=== PATIENT | female | born 1940 | race Caucasian/White ===

== ENCOUNTER 2017-04-09 18:35 | Emergency (ER) | payer MEDICARE, MEDICAID ==
[2017-04-09 18:35] VITALS: BMI 36.7
[2017-04-09 18:47] VITALS: BP 142/99; PULSE 94; RESP 20; TEMP 98.6; O2SAT 97
--- NOTE | 2017-04-09 19:33 | C.PDOC ---
History Of Present Illness 76 year old female presents to ED with complaints of fever, congestion, malaise , generalized body aches, cough, nausea and diarrhea for one week. Patient reports she did not take her temperature but has been taking Ibuprofen for fever. She reports cough is non-productive. She states she called her PCP Dr Trivedi 3 days ago who sent Zithromax to the pharmacy. She has been taking it for 2 days, but feels the same. Denies any chest pain, SOB, abdominal pain, back pain, urinary symptoms actively cough normal heart and lungs Time Seen by Provider: 04/09/17 19:21 Chief Complaint (Nursing): Body Fluid Exposure History Per: Patient History/Exam Limitations: no limitations Onset/Duration Of Symptoms: Days (1 week) Past Medical History Reviewed: Historical Data, Nursing Documentation, Vital Signs Vital Signs: Last Vital Signs Temp 98.6 F 04/09/17 18:47 Pulse 94 H 04/09/17 18:47 Resp 20 04/09/17 18:47 BP 142/99 H 04/09/17 18:47 Pulse Ox 97 04/09/17 19:55 - Medical History PMH: Anxiety, Asthma, Diabetes, HTN, Hypercholesterolemia - [facility] Procedures ACHILLOTENOTOMY (09/09/12) INJECT/INFUSE NEC (09/09/12) Family History: States: No Known Family Hx - Social History Hx Tobacco Use: No Hx Alcohol Use: No Hx Substance Use: No - Immunization History Hx Influenza Vaccination: Yes Hx Pneumococcal Vaccination: Yes Review Of Systems Except As Marked, All Systems Reviewed And Found Negative. Constitutional: Positive for: Fever (subjective), Malaise, Other ((+) generalized body aches) ENT: Positive for: Nose Congestion Cardiovascular: Negative for: Chest Pain Respiratory: Positive for: Cough (dry). Negative for: Shortness of Breath Gastrointestinal: Positive for: Nausea, Diarrhea. Negative for: Abdominal Pain Genitourinary: Negative for: Dysuria, Incontinence Musculoskeletal: Negative for: Back Pain Physical Exam - Physical Exam Appears: Non-toxic, No Acute Distress Skin: Warm, Dry, No Rash Head: Atraumatic, Normacephalic Eye(s): bilateral: Normal Inspection, PERRL, EOMI Ear(s): Bilateral: Normal (no erythema) Nose: Normal, No Discharge Oral Mucosa: Moist Throat: Normal, No Erythema, No Exudate Neck: Normal, Normal ROM, Supple Chest: Symmetrical, No Tenderness Cardiovascular: Rhythm Regular, No Murmur Respiratory: Normal Breath Sounds, No Rales, No Rhonchi, No Stridor, No Wheezing , Other (actively coughing) Gastrointestinal/Abdominal: Normal Exam, Soft, No Tenderness, No Guarding, No Rebound Extremity: Normal ROM, No Tenderness, No Deformity, No Swelling Neurological/Psych: Oriented x3, Normal Speech Gait: Steady ED Course And Treatment O2 Sat by Pulse Oximetry: 97 (RA) Pulse Ox Interpretation: Normal Medical Decision Making Medical Decision Making: Patient with multiple symptoms complaint and already taking antibiotic Zithromax with no significant relief. She has no fever, wheezing or in respiratory distress. Based on history, exam and widespread influenza, symptoms are likely the Flu. Patient is out of time window for Tamiflu. Patient advised on supportive treatment, can finish antibiotics but recommend rest, fluids and cough medicine. Disposition Counseled Patient/Family Regarding: Diagnosis, Need For Followup, Rx Given - Disposition Referrals: Moe Trivedi MD [Staff Provider] - Disposition: HOME/ ROUTINE Disposition Time: 19:33 Condition: STABLE Additional Instructions: You have viral infection, likely Influenza Take Tylenol or Motrin alternating every 4-6 hours for Fever 100.4F or higher. Rest and drink plenty of fluids. May use cool mist humidifier or vaporizer in room. Take Cough medicine as needed every 8 hours. Follow up with your primary medical doctor for further evaluation. Prescriptions: Promethazine/Phenyleph/Codeine [Korkdhzkjgkf-FH-Ylfudst Syrup] 5 ml PO Q8 PRN # 150 ml PRN Reason: Cough Instructions: Influenza (ED) Forms: [facility] ([place]i) - POA Present On Arrival: None - Clinical Impression Clinical Impression: Influenza - PA / MELTER CASTER / Resident Statement MD/DO has reviewed & agrees with the documentation as recorded. - Scribe Statement The provider has reviewed the documentation as recorded by the Scribe Heydi Barkley All medical record entries made by the Scribe were at my direction and personally dictated by me. I have reviewed the chart and agree that the record accurately reflects my personal performance of the history, physical exam, medical decision making, and the department course for this patient. I have also personally directed, reviewed, and agree with the discharge instructions and disposition.
== END 2017-04-09 20:21 | disposition home or self-care (01) ==
LOC: C.ER 18:35
DX: J11.1 Influenza due to unidentified influenza virus with other respiratory manifestations (principal)

== ENCOUNTER 2017-05-22 12:29 | Emergency (ER) | payer MEDICARE, OTHER ==
[2017-05-22 12:40] VITALS: RESP 18
[2017-05-22 12:45] VITALS: BMI 31.8
[2017-05-22 13:19] LABS: SQUAMOUS EPITHIAL < 1 /hpf (0-5); URINE BILIRUBIN NEGATIVE (NEGATIVE); URINE BLOOD NEGATIVE (NEGATIVE); URINE CLARITY Clear (Clear); URINE GLUCOSE (UA) NORMAL (Normal); URINE LEUKOCYTE ESTERASE NEG Leu/uL (Negative); URINE PROTEIN NEGATIVE (NEGATIVE); URINE UROBILINOGEN NORMAL mg/dL (0.2-1.0)
[2017-05-22 13:20] LABS: URINE COLOR YELLOW (YELLOW)
[2017-05-22] MEDS ORDERED: Morphine 4 MG/ML VIAL ONE (15:42)
[2017-05-22 15:49] LABS: BASO % 0.4 % (0.0-2.0); EOS # 0.1 K/uL (0.0-0.7); EOS % 1.4 % (0.0-4.0); HEMOGLOBIN 12.7 g/dL (11.0-16.0); LYMPH # 2.9 K/uL (1.0-4.3); MEAN CORPUSCULAR HEMOGLOBIN 28.4 pg (27.0-31.0); MEAN CORPUSCULAR HGB CONC 33.1 g/dL (33.0-37.0); MEAN PLATELET VOLUME 9.2 fL (7.2-11.7); MONO # 0.4 K/uL (0.0-0.8); MONO % 4.5 % (0.0-10.0); NEUT # 5.4 K/uL (1.8-7.0); NEUT % 60.7 % (50.0-75.0); NRBC % 0.1 % (0.0-2.0); RBC 4.47 Mil/uL (3.80-5.20); RED CELL DISTRIBUTION WIDTH 15.1 % (11.5-14.5); WHITE BLOOD COUNT 8.9 K/uL (4.8-10.8)
[2017-05-22 15:51] LABS: MEAN CELL VOLUME 85.7 fL (81.0-99.0)
[2017-05-22 15:56] LABS: ALB/GLOB RATIO 1.2 (1.0-2.1); ALBUMIN 4.1 g/dL (3.5-5.0); ALT/SGPT 40 U/L (9-52); AST/SGOT 35 U/L (14-36); BLOOD UREA NITROGEN 14 mg/dL (7-17); GFR AFRICAN-AMERICAN > 60; GFR NON-AFRICAN AMERICAN > 60; LIPASE 118 U/L (23-300)
--- NOTE | 2017-05-22 16:34 | CT ---
PROCEDURE: CT Abdomen and Pelvis without intravenous contrast HISTORY: Left flank pain. COMPARISON: None. TECHNIQUE: Without contrast.. Contrast Dose: 0 Radiation dose: Total exam DLP = 952.26 mGy-cm. This CT exam was performed using one or more of the following dose reduction techniques: Automated exposure control, adjustment of the mA and/or kV according to patient size, and/or use of iterative reconstruction technique. FINDINGS: LOWER THORAX: Unremarkable. LIVER: Normal size and contour. No mass. Several punctate calcifications consistent with calcified granulomata. No biliary ductal dilatation. GALLBLADDER AND BILE DUCTS: Gallbladder not visualized. Though there are no surgical clips in the gallbladder fossa, the patient is presumed to be status post cholecystectomy. Please correlate with history. PANCREAS: Unremarkable. No gross lesion or ductal dilatation. SPLEEN: Unremarkable. ADRENALS: Unremarkable. No mass. KIDNEYS AND URETERS: Unremarkable. No hydronephrosis. No solid mass. VASCULATURE: Unremarkable. No aortic aneurysm. BOWEL: Diverticulosis of the descending and sigmoid colon. No evidence of diverticulitis. No bowel obstruction. APPENDIX: Unremarkable. Normal appendix. PERITONEUM: No ascites. Evidence of prior ventral herniorrhaphy ease. There are 2 ventral hernias containing only mesenteric fat but no herniated bowel loops. LYMPH NODES: Unremarkable. No enlarged lymph nodes. BLADDER: Poorly distended. Grossly normal. REPRODUCTIVE: Status post hysterectomy. BONES: No acute fracture. OTHER FINDINGS: None. IMPRESSION: Two ventral hernias containing only mesenteric fat. No bowel herniation. Diverticulosis of the descending and sigmoid colon. No evidence of diverticulitis. No bowel obstruction. No other significant abnormality.
[2017-05-22 16:45] VITALS: BP 121/70; PULSE 79; TEMP 98.2
[2017-05-22 16:47] VITALS: O2SAT 97
--- NOTE | 2017-05-22 16:47 | C.PDOC ---
History Of Present Illness Pt c/o left lower back pain radiating down LLE/anteriorly. Time Seen by Provider: 05/22/17 12:55 Chief Complaint (Nursing): Back Pain History Per: Patient, EMS, Family Onset/Duration Of Symptoms: Hrs (this morning), Waxing/Waning Current Symptoms Are (Timing): Still Present Quality Of Discomfort: "Pain" Severity: Severe Exacerbating Factor(s): Movement Additional History Per: Prior Records Past Medical History Reviewed: Historical Data, Nursing Documentation, Vital Signs Vital Signs: Last Vital Signs Temp 98.0 F 05/22/17 12:39 Pulse 78 05/22/17 12:39 Resp 18 05/22/17 12:39 BP 161/82 H 05/22/17 12:39 Pulse Ox 97 05/22/17 12:39 - Medical History PMH: Anxiety, Asthma, Diabetes, HTN, Hypercholesterolemia Surgical History: Cholecystectomy, Hernia Repair, Other Surgeries: Hysterectomy - [facility] Procedures ACHILLOTENOTOMY (09/09/12) INJECT/INFUSE NEC (09/09/12) Family History: States: Unknown Family Hx - Social History Hx Tobacco Use: No Hx Alcohol Use: No Hx Substance Use: No - Immunization History Hx Tetanus Toxoid Vaccination: No Hx Influenza Vaccination: Yes Hx Pneumococcal Vaccination: No Review Of Systems Except As Marked, All Systems Reviewed And Found Negative. Constitutional: Negative for: Fever Cardiovascular: Negative for: Chest Pain Respiratory: Negative for: Shortness of Breath Gastrointestinal: Positive for: Abdominal Pain. Negative for: Vomiting, Diarrhea Genitourinary: Negative for: Dysuria Musculoskeletal: Positive for: Back Pain. Negative for: Neck Pain Skin: Negative for: Rash Neurological: Negative for: Weakness, Numbness Physical Exam - Physical Exam Appears: Non-toxic, No Acute Distress Skin: Normal Color, Warm, Dry, No Rash Head: Atraumatic, Normacephalic Eye(s): bilateral: Normal Inspection, PERRL, EOMI Neck: Normal ROM, Supple Cardiovascular: Rhythm Regular Respiratory: Normal Breath Sounds, No Accessory Muscle Use Gastrointestinal/Abdominal: Soft, No Tenderness, Hernia (reducible) Back: No CVA Tenderness, Paraspinal Tenderness (left lower) Extremity: Normal ROM Neurological/Psych: Oriented x3, Normal Motor, Normal Sensation ED Course And Treatment - Laboratory Results Result Diagrams: 05/22/17 15:41 05/22/17 15:41 Lab Interpretation: No Acute Changes O2 Sat by Pulse Oximetry: 97 Pulse Ox Interpretation: Normal - Other Rad Left hip x-rays X-Ray: Interpreted by Me, Viewed By Me Interpretation: DJD. No acute fx or dislocation. LS spine x-rays X-Ray: Interpreted by Me, Viewed By Me Interpretation: DJD - CT Scan/US CT abd/pelv Other Rad Studies (CT/US): Read By Radiologist, Radiology Report Reviewed CT/US Interpretation: IMPRESSION: Two ventral hernias containing only mesenteric fat. No bowel herniation. Diverticulosis of the descending and sigmoid colon. No evidence of diverticulitis. No bowel obstruction. No other significant abnormality. Reassessment Condition: Improved Disposition Counseled Patient/Family Regarding: Studies Performed, Diagnosis, Need For Followup, Rx Given - Disposition Referrals: Moe Trivedi MD [Staff Provider] - Disposition: HOME/ ROUTINE Disposition Time: 16:58 Condition: STABLE Additional Instructions: Follow up with your doctor this week for further evaluation and treatment. Return to the ER if you develop weakness, numbness, trouble urinating, worsening of symptoms or if you have any other concerns. Prescriptions: traMADol/Acetaminophen [Ultracet 325 MG-37.5 MG] 1 tab PO Q4 PRN #30 tab PRN Reason: Pain Instructions: Sciatica (DC) Forms: [employer] (O[place]i) Print Language: YI - Clinical Impression Clinical Impression: Sciatica, left side
--- NOTE | 2017-05-22 17:45 | RAD ---
PROCEDURE: Left Hip X-ray Radiographs. HISTORY: Pain COMPARISON: None. FINDINGS: BONES: Normal. No fracture. JOINTS: Normal. SOFT TISSUES: Normal. OTHER FINDINGS: None. IMPRESSION: Normal left hip radiographs.
--- NOTE | 2017-05-22 17:49 | RAD ---
PROCEDURE: Radiographs of the Lumbar Spine. HISTORY: Left sided pain radiating down LLE COMPARISON: No prior. FINDINGS: BONES: Vertebral bodies maintained in height. Transverse processes and posterior elements appear intact. DISC SPACES: Narrowing of the L5-S1 disc space. Osteophytes seen about all of the intervertebral disc spaces of the lumbar spine. OTHER FINDINGS: None. IMPRESSION: Degenerative disc disease at L5-S1.
== END 2017-05-22 17:05 | disposition home or self-care (01) ==
LOC: C.ER 12:29
DX: M54.32 Sciatica, left side (principal)
CPT/HCPCS: 72100; 73502; 74176; 80053; 81001; 83690; 85025; 96372; 99283; J1885

== ENCOUNTER 2017-12-05 13:50 | Inpatient (IN) | payer MEDICARE, MEDICAID ==
[2017-12-05 13:50] VITALS: BMI 31.8
--- NOTE | 2017-12-05 14:11 | C.PDOC ---
History Of Present Illness 77yo female, with distant history of vertigo, comes to ER reporting sudden onset dizziness x 3 hours ago. She reports ataxic gait but denies any fall. She also denies any headache, nausea, vomiting. No additional complaints. Time Seen by Provider: 12/05/17 14:03 Chief Complaint (Nursing): Weakness/Neurological Deficit History Per: Patient History/Exam Limitations: no limitations Onset/Duration Of Symptoms: Hrs Additional History Per: Patient Past Medical History Reviewed: Historical Data, Nursing Documentation, Vital Signs Vital Signs: Last Vital Signs Temp 98.2 F 12/05/17 13:50 Pulse 80 12/05/17 13:50 Resp 18 12/05/17 13:50 BP 180/104 H 12/05/17 13:50 Pulse Ox 100 12/05/17 13:50 - Medical History PMH: Anxiety, Asthma, Diabetes, HTN, Hypercholesterolemia Surgical History: Cholecystectomy, Hernia Repair, - [facility] Procedures ACHILLOTENOTOMY (09/09/12) INJECT/INFUSE NEC (09/09/12) Family History: States: Unknown Family Hx - Social History Hx Tobacco Use: No Hx Alcohol Use: No Hx Substance Use: No - Immunization History Hx Tetanus Toxoid Vaccination: Yes Hx Influenza Vaccination: Yes Hx Pneumococcal Vaccination: No Review Of Systems Except As Marked, All Systems Reviewed And Found Negative. Constitutional: Negative for: Fever, Chills Gastrointestinal: Negative for: Vomiting Neurological: Positive for: Dizziness. Negative for: Weakness, Headache Physical Exam - Physical Exam Appears: Other (mild distress) Skin: Normal Color Head: Normacephalic Eye(s): bilateral: Normal Inspection Oral Mucosa: Moist Neck: Normal ROM, Supple Chest: Symmetrical Cardiovascular: Rhythm Regular, Murmur (hollow systolic murmur) Respiratory: Normal Breath Sounds, No Rales, No Rhonchi, No Wheezing Gastrointestinal/Abdominal: Normal Exam, Soft, No Tenderness, Other (obese abdomen) Back: Normal Inspection, No CVA Tenderness Extremity: Normal ROM, No Pedal Edema Neurological/Psych: Oriented x3 ED Course And Treatment - Laboratory Results Result Diagrams: 12/05/17 14:37 12/05/17 14:37 Lab Interpretation: Normal (trop/bnp neg, UA neg.) ECG: Interpreted By Me, Viewed By Me ECG Rhythm: Sinus Rhythm ECG Interpretation: Normal Rate From EC O2 Sat by Pulse Oximetry: 100 (RA) Pulse Ox Interpretation: Normal - Radiology CXR: Interpreted by Me CXR Interpretation: Yes: No Acute Disease Progress Note: ASA, pepcid, zofran, meclizine given Reevaluation Time: 16:29 Reassessment Condition: Improved - Physician Consult Information Outcome Of Conversation: [id number]: d/w Dr. Trivedi, PMD, ok to admit for obs. Will order MRI for AM NIHSS Stroke Scale 2 - Date/Time Evaluation Performed Date Performed: 12/05/17 Time Performed: 14:00 When Was NIHSS Performed: Baseline - How Severe is the Stroke Level of Consciousness: 0=Alert LOC to Questions: 0=Both comments correct LOC to commands: 0=Obeys both correctly Best Gaze: 0=Normal Visual: 1=Partial hemianopia Facial: 0=Normal Motor Arm - Left: 0=No drift Motor Arm - Right: 0=No drift Motor Leg - Left: 0=No drift Motor Leg - Right: 0=No drift Limb Ataxia: 0=Absent Sensory: 0=Normal Best Language: 0=No aphasia Dysarthia: 0=Normal articulation Extinction & Inattention (Neglect): 0=Normal, no object Score: 1 Severity Of Stroke: 1-4 = Minor Stroke rTPA Inclusion/Exclusion - Refusal of Treatment Patient Refused Treatment: No - Inclusion Criteria for Altepase Patient is 18 years or Older: Yes The Clinical Diagnosis of Ischemic Stroke That is Causing a Potentially Disabling Neurological Deficit: No Time of Onset is Well Established to be Less Than 270 Minute Before Treatment Would Begin: No Risk/Benefit Discussed With Patient/Family Member Present: No - Exclusion Criteria for Altepase Uncontrolled Hypertension at Time of Treatment (Systolic BP above 185 or Diastolic BP above 110 mmHg): No Known Bleeding Diathesis Including but Not Limited to: Platelets Below 100,000/mm,PTT Above 40 sec After Heparin Use, Current Use of Oral Anitcoagulant With INR Greater Than 1.7 or PT Greater Than 15 secs: No Evidence of an Intracranial Hemorrhage: No Evidence of Major Acute Infarct With Signs Greater Than 1/3 MCA Territory: No Suspicion of Subarachnoid Hemorrhage on Pretreatment Evaluation Even if CT Head Negative For Hemorrhage: No - Warning to TPA With Conditions Condition: Stroke Serevity Too Mild, Rapid Improvement, Age Greater Than 75 years Medical Decision Making Medical Decision Making: Plan: * Labs * CXR * EKG * CT Head w/o contrast * Pepcid 20mg IVP * Meclizine 50mg PO * Zofran 4mg IVP Fingerstick 171 ? small CVA (multiple small vascular dz chronic on CT, nothing acute) vs anxiety, vs vertigo (h/o same "yrs" ago)\\ CT Head FINDINGS: HEMORRHAGE: No intracranial hemorrhage. BRAIN: Mild diffuse and confluent chronic periventricular white matter ischemic changes as well as patchy deep and subcortical white matter are present. 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 Note that the possibility of a small hyperacute infarct cannot be excluded on this exam. Consider follow-up MRI of the brain if further evaluation is required No obvious parenchymal nor extra-axial masses or collections. Mild age-appropriate volume loss. VENTRICLES: No obstructive hydrocephalus. CALVARIUM: Hyperostosis frontalis interna. PARANASAL SINUSES: Unremarkable as visualized. No significant inflammatory changes. MASTOID AIR CELLS: Unremarkable as visualized. No inflammatory changes. OTHER FINDINGS: None. IMPRESSION: No acute intracranial hemorrhage. Mild diffuse and confluent chronic periventricular white matter ischemic changes as well as patchy deep and subcortical white matter are present. 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 Note that the possibility of a small hyperacute infarct cannot be excluded on this exam. Consider follow-up MRI of the brain if further evaluation is required Disposition Doctor Will See Patient In The: Hospital Counseled Patient/Family Regarding: Studies Performed, Diagnosis - Disposition Disposition Time: 16:30 Forms: [facility] ([place]an) - Clinical Impression Clinical Impression: Anxiety, Dizziness - Scribe Statement The provider has reviewed the documentation as recorded by the Bela Dockery Provider Attestation: All medical record entries made by the Bela were at my direction and personally dictated by me. I have reviewed the chart and agree that the record accurately reflects my personal performance of the history, physical exam, medical decision making, and the department course for this patient. I have also personally directed, reviewed, and agree with the discharge instructions and disposition.
[2017-12-05 14:43] LABS: BASO # 0.1 K/uL (0.0-0.2); BASO % 1.1 % (0.0-2.0); EOS # 0.2 K/uL (0.0-0.7); HEMOGLOBIN 12.5 g/dL (11.0-16.0); LYMPH # 2.9 K/uL (1.0-4.3); LYMPH % 34.6 % (20.0-40.0); MEAN CELL VOLUME 84.8 fL (81.0-99.0); MEAN CORPUSCULAR HEMOGLOBIN 28.7 pg (27.0-31.0); MEAN CORPUSCULAR HGB CONC 33.8 g/dL (33.0-37.0); MEAN PLATELET VOLUME 8.7 fL (7.2-11.7); MONO # 0.4 K/uL (0.0-0.8); MONO % 4.4 % (0.0-10.0); NEUT # 4.8 K/uL (1.8-7.0); NEUT % 57.9 % (50.0-75.0); NRBC % 0.1 % (0.0-2.0); RBC 4.37 Mil/uL (3.80-5.20); RED CELL DISTRIBUTION WIDTH 14.6 % (11.5-14.5); WHITE BLOOD COUNT 8.2 K/uL (4.8-10.8)
[2017-12-05 14:52] LABS: INR 1.1; PROTHROMBIN TIME 11.9 SECONDS (9.7-12.2)
[2017-12-05 14:56] LABS: ALB/GLOB RATIO 1.3 (1.0-2.1); ALT/SGPT 21 U/L (9-52); AST/SGOT 17 U/L (14-36); BLOOD UREA NITROGEN 16 mg/dL (7-17); CALCIUM 9.8 mg/dl (8.6-10.4); GFR NON-AFRICAN AMERICAN > 60; HDL CHOLESTEROL 47 mg/dL (30-70)
[2017-12-05 15:07] LABS: LDL CHOLESTEROL 42 mg/dL (0-129)
[2017-12-05 15:11] LABS: B-TYPE NATRIURETIC PEPTIDE 62.3 pg/mL (0-900)
--- NOTE | 2017-12-05 15:27 | CT ---
Date of service: 12/05/2017 PROCEDURE: CT HEAD WITHOUT CONTRAST. HISTORY: Acute vertigo x 3 hrs, neuro neg COMPARISON: None available. TECHNIQUE: Axial computed tomography images were obtained through the head/brain without intravenous contrast. Radiation dose: Total exam DLP = 1176.12 mGy-cm. This CT exam was performed using one or more of the following dose reduction techniques: Automated exposure control, adjustment of the mA and/or kV according to patient size, and/or use of iterative reconstruction technique. FINDINGS: HEMORRHAGE: No intracranial hemorrhage. BRAIN: Mild diffuse and confluent chronic periventricular white matter ischemic changes as well as patchy deep and subcortical white matter are present. 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 Note that the possibility of a small hyperacute infarct cannot be excluded on this exam. Consider follow-up MRI of the brain if further evaluation is required No obvious parenchymal nor extra-axial masses or collections. Mild age-appropriate volume loss. VENTRICLES: No obstructive hydrocephalus. CALVARIUM: Hyperostosis frontalis interna. PARANASAL SINUSES: Unremarkable as visualized. No significant inflammatory changes. MASTOID AIR CELLS: Unremarkable as visualized. No inflammatory changes. OTHER FINDINGS: None. IMPRESSION: No acute intracranial hemorrhage. Mild diffuse and confluent chronic periventricular white matter ischemic changes as well as patchy deep and subcortical white matter are present. 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 Note that the possibility of a small hyperacute infarct cannot be excluded on this exam. Consider follow-up MRI of the brain if further evaluation is required
[2017-12-05 15:39] LABS: SQUAMOUS EPITHIAL 1 /hpf (0-5); URINE BILIRUBIN NEGATIVE (NEGATIVE); URINE BLOOD NEGATIVE (NEGATIVE); URINE CLARITY Clear (Clear); URINE COLOR Straw (YELLOW); URINE GLUCOSE (UA) NORMAL (Normal); URINE LEUKOCYTE ESTERASE NEG Leu/uL (Negative); URINE PROTEIN NEGATIVE (NEGATIVE); URINE UROBILINOGEN NORMAL mg/dL (0.2-1.0)
[2017-12-05] MEDS ORDERED: Aspirin 325 mg EC Tablets PO STA (16:09)
[2017-12-05] MEDS ORDERED: Aspirin 325 mg EC Tablets PO ONE (16:40)
--- NOTE | 2017-12-05 17:23 | RAD ---
Date of service: 12/05/2017 HISTORY: Code Stroke COMPARISON: Chest 08/25/2012 FINDINGS: LUNGS: Minor bibasilar atelectasis PLEURA: No significant pleural effusion identified, no pneumothorax apparent. CARDIOVASCULAR: Heart size upper limits of normal OSSEOUS STRUCTURES: No significant abnormalities. VISUALIZED UPPER ABDOMEN: Normal. OTHER FINDINGS: None. IMPRESSION: Minor bibasilar atelectasis.
[2017-12-05] MEDS ORDERED: Albuterol HFA 90 mcg/actuation (8 g) IH PRN (18:51)
--- NOTE | 2017-12-05 19:26 | CP.PCM.HP ---
History of Present Illness - History of Present Illness History of Present Illness: 77 year old female who develop dizziness,weakness, altered gait 3 hours prior to going to the [facility] ER. Both eyes inflammed but she denies headache. She has fatigue and shortness of breath on exertion. Patient was advi sed admission. Present on Admission - Present on Admission Any Indicators Present on Admission: No History of DVT/PE: No History of Uncontrolled Diabetes: No Urinary Catheter: No Decubitus Ulcer Present: No History Surgical Site Infection Following: None Review of Systems - Constitutional Constitutional: Fatigue, Weakness - EENT Eyes: Irritation Ears: Dizziness - Cardiovascular Cardiovascular: Dyspnea on Exertion - Respiratory Respiratory: Dyspnea on Exertion - Reproductive: Female Reproductive:Female: Post Menopausal - Musculoskeletal Musculoskeletal: Arthralgias - Integumentary Integumentary: Dry Skin - Neurological Neurological: Dizziness, Weakness Past Patient History - Tetanus Immunizations Tetanus Immunization: Up to Date - Past Medical History & Family History Past Medical History?: Yes - Past Social History Smoking Status: Never Smoked Chewing Tobacco Use: No Cigar Use: No Alcohol: None Drugs: Denies Home Situation {Lives}: Alone - CARDIAC Hx Heart Murmur: Yes Hx Hypercholesterolemia: Yes Hx Hypertension: Yes Hx Peripheral Edema: Yes - PULMONARY Hx Asthma: Yes - NEUROLOGICAL Hx Dizziness: Yes - ENDOCRINE/METABOLIC Hx Endocrine Disorders: Yes Hx Diabetes Mellitus Type 2: Yes - MUSCULOSKELETAL/RHEUMATOLOGICAL Hx Arthritis: Yes Hx Back Pain: Yes - GASTROINTESTINAL Hx Gastroesophageal Reflux: Yes - PSYCHIATRIC Hx Anxiety: Yes Hx Substance Use: No - SURGICAL HISTORY Hx Cholecystectomy: Yes - ANESTHESIA Hx Anesthesia: No Meds Allergies/Adverse Reactions: Allergies Allergy/AdvReac Type Severity Reaction Status Date / Time Penicillins Allergy Verified 12/05/17 16:26 Physical Exam - Constitutional Appears: No Acute Distress - Head Exam Head Exam: NORMAL INSPECTION - Eye Exam Pupil Exam: NORMAL ACCOMODATION - ENT Exam ENT Exam: Normal Exam - Neck Exam Neck exam: Positive for: Normal Inspection - Respiratory Exam Respiratory Exam: Wheezes - Cardiovascular Exam Cardiovascular Exam: REGULAR RHYTHM, Systolic Murmur - GI/Abdominal Exam GI & Abdominal Exam: Hyperactive Bowel Sounds - Rectal Exam Rectal Exam: Deferred - Exam External exam: NORMAL EXTERNAL EXAM - Back Exam Back exam: NORMAL INSPECTION - Neurological Exam Neurological exam: Oriented x3 - Psychiatric Exam Psychiatric exam: Anxious - Skin Skin Exam: Dry Results - Vital Signs Recent Vital Signs: Last Vital Signs Temp 98.4 F 12/05/17 17:24 Pulse 77 12/05/17 18:30 Resp 15 12/05/17 18:30 BP 134/68 12/05/17 18:30 Pulse Ox 98 12/05/17 18:30 - Labs Result Diagrams: 12/05/17 14:37 12/05/17 14:37 Labs: Laboratory Results - last 24 hr 12/05/17 12/05/17 12/05/17 14:05 14:37 14:37 WBC 8.2 RBC 4.37 Hgb 12.5 Hct 37.0 MCV 84.8 MCH 28.7 MCHC 33.8 RDW 14.6 H Plt Count 216 MPV 8.7 Neut % (Auto) 57.9 Lymph % (Auto) 34.6 [place] % (Auto) 4.4 Eos % (Auto) 2.0 Baso % (Auto) 1.1 Neut # (Auto) 4.8 Lymph # (Auto) 2.9 [place] # (Auto) 0.4 Eos # (Auto) 0.2 Baso # (Auto) 0.1 PT 11.9 INR 1.1 APTT 31 Sodium Potassium Chloride Carbon Dioxide Anion Gap BUN Creatinine Est GFR ( Amer) Est GFR (Non-Af Amer) POC Glucose (mg/dL) 171 H Random Glucose Hemoglobin A1c Calcium Total Bilirubin AST ALT Alkaline Phosphatase Troponin I NT-Pro-B Natriuret Pep Total Protein Albumin Globulin Albumin/Globulin Ratio Triglycerides Cholesterol LDL Cholesterol Direct HDL Cholesterol Urine Color Urine Clarity Urine pH Ur Specific [place] Urine Protein Urine Glucose (UA) Urine Ketones Urine Blood Urine Nitrate Urine Bilirubin Urine Urobilinogen Ur Leukocyte Esterase Urine WBC (Auto) Urine RBC (Auto) Ur Squamous Epith Cells 12/05/17 12/05/17 12/05/17 14:37 14:37 15:32 WBC RBC Hgb Hct MCV MCH MCHC RDW Plt Count MPV Neut % (Auto) Lymph % (Auto) [place] % (Auto) Eos % (Auto) Baso % (Auto) Neut # (Auto) Lymph # (Auto) [place] # (Auto) Eos # (Auto) Baso # (Auto) PT INR APTT Sodium 140 Potassium 4.6 Chloride 103 Carbon Dioxide 26 Anion Gap 16 BUN 16 Creatinine 0.8 Est GFR ( Amer) > 60 Est GFR (Non-Af Amer) > 60 POC Glucose (mg/dL) Random Glucose 162 H Hemoglobin A1c 7.8 H Calcium 9.8 Total Bilirubin 0.3 AST 17 ALT 21 Alkaline Phosphatase 53 Troponin I < 0.0120 NT-Pro-B Natriuret Pep 62.3 Total Protein 7.0 Albumin 4.0 Globulin 3.0 Albumin/Globulin Ratio 1.3 Triglycerides 111 Cholesterol 103 LDL Cholesterol Direct 42 HDL Cholesterol 47 Urine Color Straw Urine Clarity Clear Urine pH 5.0 Ur Specific [place] 1.010 Urine Protein Negative Urine Glucose (UA) Normal Urine Ketones Negative Urine Blood Negative Urine Nitrate Negative Urine Bilirubin Negative Urine Urobilinogen Normal Ur Leukocyte Esterase Neg Urine WBC (Auto) 1 Urine RBC (Auto) < 1 Ur Squamous Epith Cells 1 Assessment & Plan (1) Brainstem infarct, acute Status: Acute (2) Diabetes mellitus Status: Acute (3) Bronchial asthma Status: Acute (4) ASHD (arteriosclerotic heart disease) Status: Acute (5) Vertigo Status: Acute
[2017-12-06 06:24] LABS: BASO % 0.4 % (0.0-2.0); EOS # 0.1 K/uL (0.0-0.7); EOS % 1.9 % (0.0-4.0); HEMOGLOBIN 11.5 g/dL (11.0-16.0); LYMPH # 3.6 K/uL (1.0-4.3); LYMPH % 44.9 % (20.0-40.0); MEAN CELL VOLUME 85.6 fL (81.0-99.0); MEAN CORPUSCULAR HEMOGLOBIN 28.1 pg (27.0-31.0); MEAN CORPUSCULAR HGB CONC 32.8 g/dL (33.0-37.0); MEAN PLATELET VOLUME 9.7 fL (7.2-11.7); MONO # 0.5 K/uL (0.0-0.8); MONO % 5.9 % (0.0-10.0); NEUT # 3.8 K/uL (1.8-7.0); NEUT % 46.9 % (50.0-75.0); NRBC % 0.1 % (0.0-2.0); RBC 4.08 Mil/uL (3.80-5.20); RED CELL DISTRIBUTION WIDTH 14.8 % (11.5-14.5)
[2017-12-06 06:46] LABS: ALB/GLOB RATIO 1.3 (1.0-2.1); ALBUMIN 3.6 g/dL (3.5-5.0); ALT/SGPT 29 U/L (9-52); AST/SGOT 14 U/L (14-36); BLOOD UREA NITROGEN 17 mg/dL (7-17); CALCIUM 9.4 mg/dl (8.6-10.4); GFR NON-AFRICAN AMERICAN > 60
--- NOTE | 2017-12-06 07:22 | CP.PCM.CON ---
History of Present Illness - History of Present Illness History of Present Illness: CONSULT DICTATED NEW ONSET OF VERTIGO WITH ATAXIA SIG RISK FACTORS / CO [employer] - ISCHMEIC PROCESS EXAM LEFT UMN VII N AND LEFT HEMIPARESIS CARTOTID BRUIT AND EJECTION SYST MURMER ASA FAILURE ADD PLAVIX KEEP MAP AROUND 100 FALL PRECAUTION AND PT MRI/EEG/CAROTID/ECHO STROKE PROPYLAXIS PSG AN OP Past Patient History - Tetanus Immunizations Tetanus Immunization: Up to Date - Past Medical History & Family History Past Medical History?: Yes - Past Social History Smoking Status: Never Smoked - CARDIAC Hx Cardiac Disorders: Yes Hx Heart Murmur: Yes Hx Hypercholesterolemia: Yes Hx Hypertension: Yes Hx Peripheral Edema: Yes - PULMONARY Hx Respiratory Disorders: Yes Hx Asthma: Yes - NEUROLOGICAL Hx Neurological Disorder: Yes Hx Dizziness: Yes Hx Vertigo: Yes - HEENT Hx HEENT Problems: Yes Hx Glaucoma: Yes Other/Comment: occasionally wears glasses for reading - RENAL Hx Chronic Kidney Disease: No - ENDOCRINE/METABOLIC Hx Endocrine Disorders: Yes Hx Diabetes Mellitus Type 2: Yes - HEMATOLOGICAL/ONCOLOGICAL Hx Blood Disorders: No - INTEGUMENTARY Hx Dermatological Problems: No - MUSCULOSKELETAL/RHEUMATOLOGICAL Hx Musculoskeletal Disorders: Yes Hx Arthritis: Yes Hx Back Pain: Yes Hx Falls: Yes - GASTROINTESTINAL Hx Gastrointestinal Disorders: Yes Hx Gastroesophageal Reflux: Yes - GENITOURINARY/GYNECOLOGICAL Hx Genitourinary Disorders: No - PSYCHIATRIC Hx Psychophysiologic Disorder: No Hx Anxiety: Yes Hx Substance Use: No - SURGICAL HISTORY Hx Surgeries: Yes Hx Cholecystectomy: Yes - ANESTHESIA Hx Anesthesia: No Meds Allergies/Adverse Reactions: Allergies Allergy/AdvReac Type Severity Reaction Status Date / Time Penicillins Allergy Verified 12/05/17 16:26 - Medications Medications: Current Medications Acetaminophen (Tylenol 325mg Tab) 650 mg PO Q6 PRN PRN Reason: Pain, Mild (1-3) Last Admin: 12/05/17 22:36 Dose: 650 mg Albuterol (Ventolin Hfa 90 Mcg/Actuation (8 G)) 1 puff IH Q6H PRN PRN Reason: Shortness of Breath Alprazolam (Xanax) 0.5 mg PO BID PRN PRN Reason: Anxiety Aspirin (Ecotrin) 81 mg PO DAILY FELIZ Brimonidine Tartrate (Alphagan 0.2% Opht) 0 ml OU TID FELIZ Clopidogrel Bisulfate (Plavix) 75 mg PO DAILY FELIZ Dorzolamide HCl (Trusopt) 0 ml OU DAILY [facility] Enalapril Maleate (Vasotec) 10 mg PO DAILY [facility] Famotidine (Pepcid) 20 mg PO BID FELIZ Furosemide (Lasix) 20 mg PO DAILY [facility] Glimepiride (Amaryl) 2 mg PO BID [facility] Heparin Sodium (Porcine) (Heparin) 5,000 units SC Q8 [facility] Last Admin: 12/06/17 06:09 Dose: 5,000 units Home Med (Linagliptin/Metformin Hcl [Jentadueto Xr 2.5 Mg-1,000 Mg]) 1 tab PO BID [facility] Influenza Virus Vaccine (Fluzone Quad 5009-5502) 60 mcg IM .ONCE ONE Stop: 12/07/17 10:01 Latanoprost (Xalatan Opht) 0 ml OU HS [facility] Pneumococcal Polyvalent Vaccine (Pneumovax 23 Vaccine) 0.5 ml SC .ONCE ONE Stop: 12/07/17 10:01 Rosuvastatin Calcium (Crestor) 10 mg PO HS [facility] Timolol Maleate (Timoptic 0.5% [facility]) 0 drop OU DAILY [facility] Vitamin B Complex/Vitamin C (Berocca) 1 tab PO DAILY [facility] Results - Vital Signs Recent Vital Signs: Last Vital Signs Temp 97.5 F L 12/06/17 04:00 Pulse 87 12/06/17 06:00 Resp 11 L 12/06/17 06:00 BP 110/67 12/06/17 05:11 Pulse Ox 100 12/06/17 06:00 - Labs Result Diagrams: 12/06/17 06:16 12/06/17 06:16 Labs: Laboratory Results - last 24 hr 12/05/17 12/05/17 12/05/17 14:05 14:37 14:37 WBC 8.2 RBC 4.37 Hgb 12.5 Hct 37.0 MCV 84.8 MCH 28.7 MCHC 33.8 RDW 14.6 H Plt Count 216 MPV 8.7 Neut % (Auto) 57.9 Lymph % (Auto) 34.6 [place] % (Auto) 4.4 Eos % (Auto) 2.0 Baso % (Auto) 1.1 Neut # (Auto) 4.8 Lymph # (Auto) 2.9 [place] # (Auto) 0.4 Eos # (Auto) 0.2 Baso # (Auto) 0.1 PT 11.9 INR 1.1 APTT 31 Sodium Potassium Chloride Carbon Dioxide Anion Gap BUN Creatinine Est GFR ( Amer) Est GFR (Non-Af Amer) POC Glucose (mg/dL) 171 H Random Glucose Hemoglobin A1c Calcium Phosphorus Magnesium Total Bilirubin AST ALT Alkaline Phosphatase Troponin I NT-Pro-B Natriuret Pep Total Protein Albumin Globulin Albumin/Globulin Ratio Triglycerides Cholesterol LDL Cholesterol Direct HDL Cholesterol Urine Color Urine Clarity Urine pH Ur Specific [place] Urine Protein Urine Glucose (UA) Urine Ketones Urine Blood Urine Nitrate Urine Bilirubin Urine Urobilinogen Ur Leukocyte Esterase Urine WBC (Auto) Urine RBC (Auto) Ur Squamous Epith Cells 12/05/17 12/05/17 12/05/17 14:37 14:37 15:32 WBC RBC Hgb Hct MCV MCH MCHC RDW Plt Count MPV Neut % (Auto) Lymph % (Auto) [place] % (Auto) Eos % (Auto) Baso % (Auto) Neut # (Auto) Lymph # (Auto) [place] # (Auto) Eos # (Auto) Baso # (Auto) PT INR APTT Sodium 140 Potassium 4.6 Chloride 103 Carbon Dioxide 26 Anion Gap 16 BUN 16 Creatinine 0.8 Est GFR ( Amer) > 60 Est GFR (Non-Af Amer) > 60 POC Glucose (mg/dL) Random Glucose 162 H Hemoglobin A1c 7.8 H Calcium 9.8 Phosphorus Magnesium Total Bilirubin 0.3 AST 17 ALT 21 Alkaline Phosphatase 53 Troponin I < 0.0120 NT-Pro-B Natriuret Pep 62.3 Total Protein 7.0 Albumin 4.0 Globulin 3.0 Albumin/Globulin Ratio 1.3 Triglycerides 111 Cholesterol 103 LDL Cholesterol Direct 42 HDL Cholesterol 47 Urine Color Straw Urine Clarity Clear Urine pH 5.0 Ur Specific [place] 1.010 Urine Protein Negative Urine Glucose (UA) Normal Urine Ketones Negative Urine Blood Negative Urine Nitrate Negative Urine Bilirubin Negative Urine Urobilinogen Normal Ur Leukocyte Esterase Neg Urine WBC (Auto) 1 Urine RBC (Auto) < 1 Ur Squamous Epith Cells 1 12/05/17 12/06/17 12/06/17 22:34 06:16 06:16 WBC 8.0 RBC 4.08 Hgb 11.5 Hct 35.0 MCV 85.6 MCH 28.1 MCHC 32.8 L RDW 14.8 H Plt Count 198 MPV 9.7 Neut % (Auto) 46.9 L Lymph % (Auto) 44.9 H [place] % (Auto) 5.9 Eos % (Auto) 1.9 Baso % (Auto) 0.4 Neut # (Auto) 3.8 Lymph # (Auto) 3.6 [place] # (Auto) 0.5 Eos # (Auto) 0.1 Baso # (Auto) 0.0 PT INR APTT Sodium 141 Potassium 4.6 Chloride 105 Carbon Dioxide 27 Anion Gap 13 BUN 17 Creatinine 0.9 Est GFR ( Amer) > 60 Est GFR (Non-Af Amer) > 60 POC Glucose (mg/dL) 140 H Random Glucose 150 H Hemoglobin A1c Calcium 9.4 Phosphorus 4.3 Magnesium 1.8 Total Bilirubin 0.2 AST 14 ALT 29 Alkaline Phosphatase 50 Troponin I NT-Pro-B Natriuret Pep Total Protein 6.3 Albumin 3.6 Globulin 2.7 Albumin/Globulin Ratio 1.3 Triglycerides Cholesterol LDL Cholesterol Direct HDL Cholesterol Urine Color Urine Clarity Urine pH Ur Specific [place] Urine Protein Urine Glucose (UA) Urine Ketones Urine Blood Urine Nitrate Urine Bilirubin Urine Urobilinogen Ur Leukocyte Esterase Urine WBC (Auto) Urine RBC (Auto) Ur Squamous Epith Cells
[2017-12-06 07:40] LABS: FREE T4 0.74 ng/dL (0.78-2.19)
[2017-12-06] MEDS: Brimonidine 0.2% Opth Sol (5ml) OU SCH ×3 (10:12→17:07)
[2017-12-06] MEDS: Vitamin B Complex/Vitamin C Tab PO SCH (10:12)
[2017-12-06] MEDS: Dorzolamide 2% Opht Sol 10ml OU SCH (10:13)
--- NOTE | 2017-12-06 13:09 | VASCLAB ---
Date of service: 12/06/2017 PROCEDURE: Carotid Duplex Exam. HISTORY: Vertigo, Ataxia. COMPARISON: None available. TECHNIQUE: Grayscale and duplex Doppler evaluation of the cervical carotid and vertebral arteries were performed. The common carotid, carotid bifurcations and cervical Internal Carotid Artery (ICA) and proximal External Carotid Artery (ECA) were evaluated. The vertebral arteries were evaluated for gross patency and flow direction. Report prepared by YAS Vega FINDINGS: RIGHT CAROTID ARTERIES: 1. Common Carotid Artery: No significant focal plaque formation of the right common carotid artery. Maximum Peak Systolic velocity: 57 cm/sec: End-diastolic velocity 13 cm/sec. 2. Carotid Bifurcation: plaque formation. Maximum Peak Systolic velocity: 52 cm/sec: End-diastolic velocity 11 cm/sec. 3. Internal Carotid Artery: Plaque description: 3.1. Proximal Segment: Peak systolic velocity 56 cm/sec: End-diastolic velocity 16 cm/sec - % stenosis 0-15% 3.2. Middle Segment: Peak systolic velocity 78 cm/sec: End-diastolic velocity 28 cm/sec - % stenosis 0-15% 3.3. Distal Segment: Peak systolic velocity 70 cm/sec: End-diastolic velocity 20 cm/sec - % stenosis 0-15% 4. External Carotid Artery: No significant focal plaque formation. Peak systolic velocity 77 cm/sec 5. ICA/CCA Ratio: 1.4 LEFT CAROTID ARTERIES: 1. Common Carotid Artery: No significant focal plaque formation of the left common carotid artery. Maximum Peak Systolic velocity: 100 cm/sec: End-diastolic velocity 16 cm/sec. 2. Carotid Bifurcation: plaque formation. Maximum Peak Systolic velocity: 38 cm/sec: End-diastolic velocity 8 cm/sec. 3. Internal Carotid Artery: Plaque description: 3.1. Proximal Segment: Peak systolic velocity 46 cm/sec: End-diastolic velocity 15 cm/sec - % stenosis 0-15% 3.2. Middle Segment: Peak systolic velocity 70 cm/sec: End-diastolic velocity 23 cm/sec - % stenosis 0-15% 3.3. Distal Segment: Peak systolic velocity 63 cm/sec: End-diastolic velocity 21 cm/sec - % stenosis 0-15% 4. External Carotid Artery: No significant focal plaque formation. Peak systolic velocity 53 cm/sec 5. ICA/CCA Ratio: 0.9 VERTEBRAL ARTERIES: 1. Right Vertebral Artery: The right vertebral artery flow direction is antegrade. 2. Left Vertebral Artery: The left vertebral artery flow direction is antegrade. OTHER FINDINGS: None. IMPRESSION: RIGHT: Duplex scan does not suggest hemodynamically significant stenosis of the right extracranial carotid arteries. LEFT: Duplex scan does not suggest hemodynamically significant stenosis of the left extracranial carotid arteries.
--- NOTE | 2017-12-06 13:09 | VASCLAB ---
Date of service: 12/06/2017 PROCEDURE: Lower Extremity Venous Duplex Exam. HISTORY: Dyspnea PRIORS: None. TECHNIQUE: Bilateral common femoral, femoral, popliteal and posterior tibial, peroneal and great saphenous veins were evaluated. Flow was assessed with color Doppler, compressibility, assessment of phasic flow and augmentation response. Report prepared by YAS Vega FINDINGS: RIGHT: 1. Common Femoral Vein: 1.1. Compressibility - Fully compressible: Thrombus - None : Flow - Phasic: Augmentation -Normal: Reflux - None. 2. Femoral Vein: 2.1. Compressibility - Fully compressible: Thrombus - None : Flow - Phasic: Augmentation -Normal: Reflux - None. 3. Popliteal Vein: 3.1. Compressibility - Fully compressible: Thrombus - None : Flow - Phasic: Augmentation -Normal: Reflux - None. 4. Posterior Tibial Vein: 4.1. Compressibility - Fully compressible: Thrombus - None: Flow - Phasic: Augmentation -Normal: Reflux - None. 5. Peroneal Vein: 5.1. Compressibility - Fully compressible: Thrombus - None: Flow - Phasic: Augmentation -Normal: Reflux - None. 6. Great Saphenous Vein: 6.1. NOT VISUALIZED. LEFT: 1. Common Femoral Vein: 1.1. Compressibility - Fully compressible: Thrombus - None: Flow - Phasic: Augmentation -Normal: Reflux - None. 2. Femoral Vein: 2.1. Compressibility - Fully compressible: Thrombus - None: Flow - Phasic: Augmentation -Normal: Reflux - None. 3. Popliteal Vein: 3.1. Compressibility - Fully compressible: Thrombus - None : Flow - Phasic: Augmentation -Normal: Reflux - None. 4. Posterior Tibial Vein: 4.1. Compressibility - Fully compressible: Thrombus - None: Flow - Phasic: Augmentation -Normal: Reflux - None. 5. Peroneal Vein: 5.1. Compressibility - Fully compressible: Thrombus - None: Flow - Phasic: Augmentation -Normal: Reflux - None. 6. Great Saphenous Vein: (Upper view only) 6.1. Compressibility - Fully compressible: Thrombus - None: Flow - Phasic: Augmentation - Normal: Reflux - None. OTHER FINDINGS: Right: None significant. Left: None significant. IMPRESSION: Right: No evidence of deep or superficial vein thrombosis of the right lower extremity. Normal valve function noted of the right side. Left: No evidence of deep or superficial vein thrombosis of the left lower extremity. Normal valve function noted of the left side.
--- NOTE | 2017-12-06 13:34 | MRI ---
Date of service: 12/06/2017 PROCEDURE: MRI BRAIN WITHOUT CONTRAST HISTORY: JA[facility] [employer]INGER ISCHEMIC VS SPACE OCCUPYING PROCESS COMPARISON: Noncontrast head CT from 12/05/2017. TECHNIQUE: Multiplanar, multisequence MR images of the brain were obtained without intravenous contrast enhancement. FINDINGS: HEMORRHAGE: None DWI: No evidence of an acute or early subacute infarction. BRAIN PARENCHYMA: There are mild chronic microangiopathic changes. There is no mass, mass effect or abnormal extra-axial fluid collection. There is no territorial infarction. The midline sagittal structures are normal. The midline sagittal structures are normal. VENTRICLES: There is mild age-related global parenchymal volume loss and proportionate enlargement of the ventricles and cortical sulci. CRANIUM: There is hyperostosis frontalis interna. ORBITS: Grossly unremarkable. PARANASAL SINUSES/MASTOIDS: There is mild mucosal thickening in the paranasal sinuses. The mastoid air cells are clear. VASCULAR SYSTEM: There are normal signal voids in the larger intracranial arteries. OTHER FINDINGS: None. IMPRESSION: No acute intracranial abnormality. Mild chronic microangiopathic changes and mild age-related global parenchymal volume loss. Hyperostosis frontalis interna.
[2017-12-06] MEDS ORDERED: Albuterol HFA 90 mcg/actuation (8 g) IH PRN (14:30)
--- NOTE | 2017-12-06 18:49 | CON ---
DATE: 12/06/2017 REASON FOR THE CONSULTATION: Dizziness. CHIEF COMPLAINT: The patient was brought in to the [facility] with history of dizziness. From neurological point of view, I was called in to evaluate her for further management. HISTORY OF PRESENT ILLNESS: Ms. Kimberly Langston is a 77-year-old right-handed female presenting with three hours history of abrupt onset of dizziness prior to the admission. With this episode, she claims that she does have losing balance. No history of fall. No history of focal weakness. Code stroke was not called in. The patient was found to have vertigo and initial CAT scan was done and the patient was admitted in ICU for further evaluation and neurological point of view, I was called in to evaluate her for further management. At present, she denies headache, dizziness is somewhat better, still she feels weakness of whole body. PAST MEDICAL HISTORY: Hypertension, dyslipidemia, anxiety disorder, [id number] diabetes mellitus. PERSONAL HISTORY: Denies smoking and alcohol use. ALLERGIES: TO PENICILLIN. REVIEW OF SYSTEMS: A 12-point system being reviewed. From neuro, new onset of dizziness. MEDICATIONS: Amaryl, multivitamin, Crestor, aspirin, Lasix, and heparin. PHYSICAL EXAMINATION: VITAL SIGNS: Blood pressure 110/67 with mean arterial pressure of 76, respiratory rate 17, temperature afebrile, pulse rate 87 and regular. NECK: Supple. Significant bruits loudly heard on her right carotid artery. Left side, somewhat muffled murmur heard and bruits heard. HEART: Sounds regular. Ejection systolic murmur heard on the right sternal border. EXTREMITIES: Left leg is externally rotated. NEUROLOGIC: Mental status: She is awake, alert, oriented to person, place, and time. Speech is clear. Naming, repetition, fluency, comprehension all within normal. She is communicable only in [place]. Cranial nerve: Visual field intact. Pupils reactive to light. Extraocular movement intact. No primary gaze, nystagmus. Left palpebral fissure is somewhat smaller to compare with the right side. Facial asymmetry manifested with flattening of the left nasolabial fold consistent with the left upper motor neuron dysfunction of the seventh nerve. Hearing is normal. Tongue is midline. Good gag. Motor: Outstretched hand with eyes closed, no drift noted. Power is symmetric on either side. Left leg is externally rotated as stated above. Deep tendon reflexes are absent. Plantars are upgoing on her left side. The tone is somewhat slightly increased to compare with her right side. Coordination: [id number] test is intact. Gait is deferred at this time. Sensory: Responds to pain symmetrically on both sides. No cortical sensory loss. CONCLUSION: As per neurological examination, Ms. Kimberly Langston is presenting with new onset of vertigo with ataxia. The current examination shows left upper motor neuron dysfunction of the seventh nerve and left hemiparesis with Babinski sign consistent with posterior cerebral artery territory dysfunction. The patient also presenting with carotid artery bruit. This is probablythe large vessel disease. Heart sounds regular with ejection systolic murmur, cardiac embologenesis should be ruled out. 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 RECOMMENDATIONS: 1. Keep the mean arterial pressure of 100, unwanted medication to bring down blood pressure should be curtailed. 2. The patient failed with aspirin. CAT scan is negative for bleed. I would like to add Plavix to substantiate the stroke prophylaxis. 3. Fall precaution, out of bed and physical therapy should be entertained as early as possible. 4. Carotid Doppler/echo/EEG and echocardiogram is recommended for stroke workup. 5. When the patient is discharged, because of the comorbidity the patient should be worked up for sleep studies to rule out any hidden sleep-related breathing disorder, which could be the added confounding risk factors. The patient's condition has been well discussed with her. She agreed with my plan of management. The patient will be followed closely with you. Jet Bundy MD DONALD
[2017-12-06] MEDS ORDERED: Albuterol 0.083% Inhal Sol (2.5 mg/3 mL) UD INH SCH (20:00)
[2017-12-06] MEDS ORDERED: Latanoprost 2.5 ml Opht Soln OU SCH (22:00)
--- NOTE | 2017-12-07 00:30 | CON ---
DATE: 12/06/2017 HISTORY OF PRESENT ILLNESS: This is a 77-year-old lady, no reported history of smoking but with a history of asthma, on medication; history of hypertension; history of diabetes; hypercholesterolemia; and obesity as well as arthritis. As of now, admitted with dizziness over the last one day but with no fall and has no seizures. She felt unsteady in walking. She complains of distant history of vertigo, has no headache. No acute chest pain and no vomiting. No respiratory distress. There was no hemoptysis. She felt weak all over, but with no localized exaggerated deficit. PAST MEDICAL HISTORY: Asthma, bronchitis, arthritis, diabetes mellitus, hypercholesterolemia, hypertension, and obesity. Smoking history is unremarkable. ALLERGIES: SHE IS ALLERGIC TO PENICILLIN. SOCIAL HISTORY: Does not drink alcohol. She did not complain of fever or chills, but has a past history of anxiety, cholecystectomy, hernia repair, and , systemic illness. METAL CUT OFF SAW TENDER unremarkable, except for present complaint of dizziness. REVIEW OF SYSTEMS: CARDIORESPIRATORY: History of asthma. No chest pain. RENAL: No dysuria. GI: No abdominal pain but had a history of cholecystectomy and hernia repair. MUSCULOSKELETAL: She has a history of arthritis. PHYSICAL EXAMINATION: GENERAL: On examination, she is alert, oriented, and obese. HEENT: Unremarkable. NECK: Supple. Carotids palpable. No lymphadenopathy. Thyroid unremarkable. She is not in acute distress. HEART: Regular with no gallop rhythm. LUNGS: Diminished breath sounds over lung bases with occasional rhonchi. ABDOMEN: Soft. EXTREMITIES: Legs, no edema. Deep tendon reflexes unremarkable. LABORATORY DATA: Showed white count 8000, hemoglobin 11.5, platelet count 198,000. Sodium 141, potassium 4.6, chloride 105, carbon dioxide 27, BUN 17, creatinine 0.9, glucose 161, magnesium 1.8, levothyroxine 0.74. Third generation TSH 1.72, vitamin B12 of 500. Urine unremarkable. Chest x-ray showed minimal basal atelectasis. Leg venous Doppler showed no suggestion of DVT as reported. IMPRESSION: Respiratory insufficiency, asthma, dizziness, severe weakness and headache, arthritis, hypertension, hypercholesterolemia, and thyroid disorder. PLAN: To continue with current medication and current followup with specialist and PMD and further testing as dictated by her condition, bronchodilators and oxygen. We will follow up. CT head was reported. MRI was reported as negative at this stage. We will do ABGs and give oxygen along with other therapy including incentive spirometry. The patient's relatives are by her bedside. Discussed with the patient. Armin Rivas MD
[2017-12-07 06:52] LABS: FREE T4 0.75 ng/dL (0.78-2.19)
[2017-12-07] MEDS: Vitamin B Complex/Vitamin C Tab PO SCH (09:42)
[2017-12-07] MEDS: Brimonidine 0.2% Opth Sol (5ml) OU SCH ×2 (09:49→14:08)
[2017-12-07] MEDS: Dorzolamide 2% Opht Sol 10ml OU SCH (09:49)
[2017-12-07] MEDS ORDERED: Influenza Vaccine 60 MCG/0.5 ML SYR (3 yr & up) IM ONE (10:00)
[2017-12-07] MEDS ORDERED: Pneumococcal 23-Valent Vaccine SC ONE (10:00)
--- NOTE | 2017-12-07 12:35 | PN ---
DATE: 12/07/2017 TIME OF EVALUATION: 07:10 a.m. NEUROLOGICAL PROBLEM: Dizziness, which has been resolved. PHYSICAL EXAMINATION: GENERAL: The patient is awake, alert, speech is normal. Her dizziness is almost resolved. VITAL SIGNS: Blood pressure 122/62, mean arterial pressure of 82, respiratory rate 18, temperature afebrile with pulse rate 72 and regular. Rest of the examination does not show any long tract sign at present. MRI of the brain reviewed showed multiple periventricular ischemic changes consistent with small vessel disease. LABORATORY DATA: Glucose 161, calcium 9.4, CRP 0.53, B12 of 500, homocysteine 6.9, TSH is 0.75. Electroencephalogram showed bilateral slow activities manifesting with delta manifested with theta activities without any paroxysmal activities. It is consistent with bilateral cerebral dysfunction. No paroxysmal activity is noted. RECOMMENDATION: Continue the present management. From a neurological point of view, the patient is stable. Jet Bundy MD
[2017-12-07 12:46] VITALS: BP 95/66; PULSE 91; RESP 18; TEMP 98.2; O2SAT 97
--- NOTE | 2017-12-07 14:21 | CP.PCM.PN ---
Subjective - Date & Time of Evaluation Date of Evaluation: 12/07/17 Time of Evaluation: 14:19 - Subjective Subjective: PT SEEN BY DR. ZAFAR AND CLEARED FOR D/C HOME TODAY. PER DR. ZAFAR NO NEW RX. PT TO F/U WITH HIM IN THE OFFICE AND ALSO WITH DR. KELLY. CONTINUE HOME MEDICATIONS. HOME PHY THER AND SENIOR CARE IS SHE QUALIFIES. [employer]. SEE BELOW FOR FURTHER D/C INSTRUCTIONS. NO FURTHER ORDERS. -FOLLOW UP WITH DR. ZAFAR IN THE OFFICE WITHIN 5-7 DAYS---CALL THE OFFICE TO MAKE AN APPOINTMENT TIME. -FOLLOW UP WITH DR. KELLY (NEUROLOGY) IN THE OFFICE WITHIN 1-2 WEEKS---CALL THE OFFICE TO MAKE AN APPOINTMENT TIME. -CONTINUE HOME MEDICATIONS USUAL. -NO NEW PRESCRIPTIONS PER DR. ZAFAR. -FOR FURTHER CONCERNS OR QUESTIONS, CONTACT DR. ZAFAR'S OFFICE. Objective - Vital Signs/Intake and Output Vital Signs (last 24 hours): Temp Pulse Resp BP Pulse Ox 98.2 F 91 H 18 95/66 L 97 12/07/17 12:00 12/07/17 12:00 12/07/17 12:00 12/07/17 12:00 12/07/17 12:00 Intake and Output: 12/07/17 12/07/17 06:59 18:59 Intake Total 450 360 Output Total 600 Balance 450 -240 - Medications Medications: Current Medications Acetaminophen (Tylenol 325mg Tab) 650 mg PO Q6 PRN PRN Reason: Pain, Mild (1-3) Last Admin: 12/05/17 22:36 Dose: 650 mg Albuterol Sulfate (Albuterol 0.083% Inhal Nell (2.5 Mg/3 Ml) Ud) 2.5 mg INH RQ6 [facility] Last Admin: 12/07/17 01:12 Dose: Not Given Alprazolam (Xanax) 0.5 mg PO BID PRN PRN Reason: Anxiety Aspirin (Ecotrin) 81 mg PO DAILY [facility] Last Admin: 12/07/17 09:42 Dose: 81 mg Brimonidine Tartrate (Alphagan 0.2% Opht) 0 ml OU TID [facility] Last Admin: 12/07/17 14:08 Dose: 1 drop Clopidogrel Bisulfate (Plavix) 75 mg PO DAILY [facility] Last Admin: 12/07/17 09:42 Dose: 75 mg Dorzolamide HCl (Trusopt) 0 ml OU DAILY [facility] Last Admin: 12/07/17 09:49 Dose: 1 drop Enalapril Maleate (Vasotec) 10 mg PO DAILY [facility] Last Admin: 12/07/17 09:35 Dose: 10 mg Famotidine (Pepcid) 20 mg PO BID [facility] Last Admin: 12/07/17 09:42 Dose: 20 mg Furosemide (Lasix) 20 mg PO DAILY [facility] Last Admin: 12/07/17 09:43 Dose: 20 mg Glimepiride (Amaryl) 2 mg PO BID [facility] Last Admin: 12/07/17 09:42 Dose: 2 mg Heparin Sodium (Porcine) (Heparin) 5,000 units SC Q8 [facility] Last Admin: 12/07/17 14:09 Dose: Not Given Latanoprost (Xalatan Opht) 0 ml OU HS [facility] Last Admin: 12/06/17 21:34 Dose: 2.5 ml Metformin HCl (Glucophage) 1,000 mg PO BIDCC [facility] Last Admin: 12/07/17 08:08 Dose: 1,000 mg Rosuvastatin Calcium (Crestor) 10 mg PO HS [facility] Last Admin: 12/06/17 21:35 Dose: 10 mg Sitagliptin Phosphate (Januvia) 50 mg PO DAILY [facility] Last Admin: 12/07/17 09:43 Dose: 50 mg Timolol Maleate (Timoptic 0.5% Oph Soln) 0 drop OU DAILY [facility] Last Admin: 12/07/17 09:52 Dose: Not Given Vitamin B Complex/Vitamin C (Berocca) 1 tab PO DAILY [facility] Last Admin: 12/07/17 09:42 Dose: 1 tab - Labs Labs: 12/06/17 06:16 12/06/17 06:16 PT 11.9 SECONDS (9.7-12.2) 12/05/17 14:37 INR 1.1 12/05/17 14:37 APTT 31 SECONDS (21-34) 12/05/17 14:37
--- NOTE | 2017-12-07 21:10 | CP.PCM.DIS ---
Provider - Provider Date of Admission: 12/05/17 16:33 Attending physician: Moe Zafar MD Time Spent in preparation of Discharge (in minutes): 24 Diagnosis - Discharge Diagnosis (1) Brainstem infarct, acute Status: Acute (2) Diabetes mellitus Status: Acute (3) Bronchial asthma Status: Acute (4) ASHD (arteriosclerotic heart disease) Status: Acute (5) Vertigo Status: Acute (6) Lacunar infarction Status: Acute Hospital Course - Lab Results Lab Results: Micro Results 12/05/17 21:14 Nose MRSA Culture (Admit) - Final MRSA NOT DETECTED Most Recent Lab Values WBC 8.0 K/uL (4.8-10.8) 12/06/17 06:16 RBC 4.08 Mil/uL (3.80-5.20) 12/06/17 06:16 Hgb 11.5 g/dL (11.0-16.0) 12/06/17 06:16 Hct 35.0 % (34.0-47.0) 12/06/17 06:16 MCV 85.6 fL (81.0-99.0) 12/06/17 06:16 MCH 28.1 pg (27.0-31.0) 12/06/17 06:16 MCHC 32.8 g/dL (33.0-37.0) L 12/06/17 06:16 RDW 14.8 % (11.5-14.5) H 12/06/17 06:16 Plt Count 198 K/uL (130-400) 12/06/17 06:16 MPV 9.7 fL (7.2-11.7) 12/06/17 06:16 Neut % (Auto) 46.9 % (50.0-75.0) L 12/06/17 06:16 Lymph % (Auto) 44.9 % (20.0-40.0) H 12/06/17 06:16 Sheridan % (Auto) 5.9 % (0.0-10.0) 12/06/17 06:16 Eos % (Auto) 1.9 % (0.0-4.0) 12/06/17 06:16 Baso % (Auto) 0.4 % (0.0-2.0) 12/06/17 06:16 Neut # (Auto) 3.8 K/uL (1.8-7.0) 12/06/17 06:16 Lymph # (Auto) 3.6 K/uL (1.0-4.3) 12/06/17 06:16 Sheridan # (Auto) 0.5 K/uL (0.0-0.8) 12/06/17 06:16 Eos # (Auto) 0.1 K/uL (0.0-0.7) 12/06/17 06:16 Baso # (Auto) 0.0 K/uL (0.0-0.2) 12/06/17 06:16 ESR 14 mm/hr (0-20) 12/06/17 09:10 PT 11.9 SECONDS (9.7-12.2) 12/05/17 14:37 INR 1.1 12/05/17 14:37 APTT 31 SECONDS (21-34) 12/05/17 14:37 Sodium 141 mmol/L (132-148) 12/06/17 06:16 Potassium 4.6 mmol/L (3.6-5.2) 12/06/17 06:16 Chloride 105 mmol/L (98-107) 12/06/17 06:16 Carbon Dioxide 27 mmol/L (22-30) 12/06/17 06:16 Anion Gap 13 (10-20) 12/06/17 06:16 BUN 17 mg/dL (7-17) 12/06/17 06:16 Creatinine 0.9 mg/dL (0.7-1.2) 12/06/17 06:16 Est GFR ( Amer) > 60 12/06/17 06:16 Est GFR (Non-Af Amer) > 60 12/06/17 06:16 POC Glucose (mg/dL) 139 mg/dL (65-110) H 12/07/17 07:31 Random Glucose 150 mg/dL (65-105) H 12/06/17 06:16 Hemoglobin A1c 7.8 % (4.2-6.5) H 12/05/17 14:37 Calcium 9.4 mg/dl (8.6-10.4) 12/06/17 06:16 Phosphorus 4.3 mg/dL (2.5-4.5) 12/06/17 06:16 Magnesium 1.8 mg/dL (1.6-2.3) 12/06/17 06:16 Total Bilirubin 0.2 mg/dL (0.2-1.3) 12/06/17 06:16 AST 14 U/L (14-36) 12/06/17 06:16 ALT 29 U/L (9-52) 12/06/17 06:16 Alkaline Phosphatase 50 U/L (38-126) 12/06/17 06:16 Troponin I < 0.0120 ng/mL (0.00-0.120) 12/07/17 06:11 C-React Prot High Sens 0.53 mg/L (1.00-3.00) L 12/06/17 06:51 NT-Pro-B Natriuret Pep 62.3 pg/mL (0-900) 12/05/17 14:37 Total Protein 6.3 g/dL (6.3-8.3) 12/06/17 06:16 Albumin 3.6 g/dL (3.5-5.0) 12/06/17 06:16 Globulin 2.7 gm/dL (2.2-3.9) 12/06/17 06:16 Albumin/Globulin Ratio 1.3 (1.0-2.1) 12/06/17 06:16 Triglycerides 111 mg/dL (0-149) 12/05/17 14:37 Cholesterol 103 mg/dL (0-199) 12/05/17 14:37 LDL Cholesterol Direct 42 mg/dL (0-129) 12/05/17 14:37 HDL Cholesterol 47 mg/dL (30-70) 12/05/17 14:37 Vitamin B12 500 pg/mL (239-931) 12/06/17 06:51 Homocysteine 6.9 umol/L (4.7-12.6) 12/06/17 06:51 Free T4 0.75 ng/dL (0.78-2.19) L 12/07/17 06:11 TSH 3rd Generation 1.52 mIU/L (0.46-4.68) 12/07/17 06:11 Urine Color Straw (YELLOW) 12/05/17 15:32 Urine Clarity Clear (Clear) 12/05/17 15:32 Urine pH 5.0 (5.0-8.0) 12/05/17 15:32 Ur Specific [place] 1.010 (1.003-1.030) 12/05/17 15:32 Urine Protein Negative mg/dL (NEGATIVE) 12/05/17 15:32 Urine Glucose (UA) Normal mg/dL (Normal) 12/05/17 15:32 Urine Ketones Negative mg/dL (NEGATIVE) 12/05/17 15:32 Urine Blood Negative (NEGATIVE) 12/05/17 15:32 Urine Nitrate Negative (NEGATIVE) 12/05/17 15:32 Urine Bilirubin Negative (NEGATIVE) 12/05/17 15:32 Urine Urobilinogen Normal mg/dL (0.2-1.0) 12/05/17 15:32 Ur Leukocyte Esterase Neg Hernan/uL (Negative) 12/05/17 15:32 Urine WBC (Auto) 1 /hpf (0-5) 12/05/17 15:32 Urine RBC (Auto) < 1 /hpf (0-3) 12/05/17 15:32 Ur Squamous Epith Cells 1 /hpf (0-5) 12/05/17 15:32 Discharge Exam - Head Exam Head Exam: NORMAL INSPECTION - Eye Exam Eye Exam: Normal appearance Pupil Exam: NORMAL ACCOMODATION - ENT Exam ENT Exam: Normal External Ear Exam - Neck Exam Neck exam: Normal Inspection - Respiratory Exam Respiratory Exam: Decreased Breath Sounds - Cardiovascular Exam Cardiovascular Exam: REGULAR RHYTHM - GI/Abdominal Exam GI & Abdominal Exam: Normal Bowel Sounds - Rectal Exam Rectal Exam: Deferred - Exam External exam: NORMAL EXTERNAL EXAM - Neurological Exam Neurological exam: Oriented x3 - Psychiatric Exam Psychiatric exam: Anxious - Skin Skin Exam: Dry Discharge Plan - Follow Up Plan Condition: GOOD Disposition: HOME/ ROUTINE Instructions: Heart Healthy Diet, Stroke (DC), Acute Cerebellar Ataxia (DC) Additional Instructions: -FOLLOW UP WITH DR. ZAFAR IN THE OFFICE WITHIN 5-7 DAYS---CALL THE OFFICE TO MAKE AN APPOINTMENT TIME. -FOLLOW UP WITH DR. KELLY (NEUROLOGY) IN THE OFFICE WITHIN 1-2 WEEKS---CALL THE OFFICE TO MAKE AN APPOINTMENT TIME. -CONTINUE HOME MEDICATIONS USUAL. -NO NEW PRESCRIPTIONS PER DR. ZAFAR. -FOR FURTHER CONCERNS OR QUESTIONS, CONTACT DR. ZAFAR'S OFFICE. Referrals: Moe Zafar MD [Staff Provider] - Jet Kelly MD [Staff Provider] - Armin Rivas MD [Staff Provider] -
--- NOTE | 2017-12-08 06:37 | PN ---
DATE: 12/07/2017 SUBJECTIVE: The patient is alert, oriented. She is not in acute distress, does not complain of chest pain and now she has no dizziness. Dizziness has subsided. PHYSICAL EXAMINATION: VITAL SIGNS: She is afebrile with blood pressure of 116/66, pulse 92, respiration 18 and hemoglobin-oxygen saturation of 97% on room air. HEART: Regular. No gallop rhythm. LUNGS: Diminished breath sounds over lung bases. Rhonchi improved. ABDOMEN: Soft. No organomegaly. EXTREMITIES: Legs, no edema. LABORATORY DATA: White count 8000, hemoglobin 11.5, platelets 198, 000, sodium 141, potassium 4.6, chloride 105, BUN 17, creatinine 0.9, troponin less than 0.01. Chest x-ray report satisfactory. Leg venous Doppler report showed no deep venous thrombosis. IMPRESSION: Respiratory insufficiency, asthma, hypertension, obesity, dizzy spell. The patient was seen by neurologist. Her condition improved. PLAN: To continue with a current therapy and follow with PMD. Armin Rivas MD
--- NOTE | 2017-12-08 07:36 | CARD ---
APPROVED REPORT Date of service: 12/06/2017 EXAM: Two-dimensional and M-mode echocardiogram with Doppler and color Doppler. Other Information Quality : TDSRhythm : INDICATION Dizziness and Vertigo Palpitations 2D DIMENSIONS IVSd1.1 (0.7-1.1cm)Aortic Root (2D)2.9 (2.0-3.7cm) LVDd5.0 (3.9-5.9cm)LVOT Diameter1.9 (1.8-2.4cm) PWd0.9 (0.7-1.1cm)LA Qtsajc27 (18-58mL) LVDs3.2 (2.5-4.0cm)FS (%) 36.3 % LVEF (%)65.7 (>50%)LVEF (Barnett's)55 % M-Mode DIMENSIONS RVDd1.26 (2.1-3.2cm)Left Atrium (MM)3.95 (2.5-4.0cm) IVSd0.89 (0.7-1.1cm)Aortic Root2.91 (2.2-3.7cm) LVDd5.68 (4.0-5.6cm)Aortic Cusp Exc.1.37 (1.5-2.0cm) PWd0.81 (0.7-1.1cm)FS (%) 29 % LVDs4.02 (2.0-3.8cm)LVEF (%)55 (>50%) Aortic Valve AoV Peak Rdaiyecd744.4cm/sAoV VTI43.4cmAO Peak GR.20mmHg LVOT Peak Mlifgrhb920.0cm/sLVOT VTI22.45cmAO Mean GR.13mmHg RAMONA (VMAX)1.41ey8JMM (VTI)1.39cm2 Mitral Valve MV E Hreavnov18.7cm/sMV A Kadiwgoi956.4cm/sE/A ratio0.6 TDI Lateral E' Peak V4.80cm/sMedial E' Peak V5.06cm/sE/Lateral E'17.2 E/Medial E'16.3 Tricuspid Valve TR Peak Nmxemset165jg/sTR Peak Gr.81lcAlQLYZ11rsAr LEFT VENTRICLE The left ventricle is normal size. There is normal left ventricular wall thickness. Left ventricle systolic function is normal. The Ejection Fraction is >55%. There is normal LV segmental wall motion. Tissue Doppler imaging reveals abnormal left ventricular diastolic dysfunction. RIGHT VENTRICLE The right ventricle is normal size. There is normal right ventricular wall thickness. The right ventricular systolic function is normal. ATRIA The left atrium size is normal. The right atrium size is normal. The interatrial septum is intact with no evidence for an atrial septal defect. AORTIC VALVE The aortic valve is mildly calcified and displays decreased opening. No aortic regurgitation is present. Calculated aortic valve area is 1.36 cm2 with maximum pressure gradient of 13 mmHg and mean pressure gradient of 25 mmHg. There is mild to moderate valvular aortic stenosis. MITRAL VALVE The mitral valve is normal in structure. There is no evidence of mitral valve prolapse. There is no mitral valve stenosis. There is no mitral valve regurgitation noted. TRICUSPID VALVE The tricuspid valve is normal in structure. There is no tricuspid valve regurgitation noted. There is no tricuspid valve prolapse or vegetation. There is no tricuspid valve stenosis. PULMONIC VALVE The pulmonic valve is not well visualized. There is no pulmonic valvular regurgitation. GREAT VESSELS The aortic root is normal in size. PERICARDIAL EFFUSION There is no significant pericardial effusion. <Conclusion> Left ventricle systolic function is normal. The Ejection Fraction is >55%. Diastolic dysfunction. There is mild to moderate valvular aortic stenosis. There is no mitral valve regurgitation noted. There is no tricuspid valve regurgitation noted. There is no pulmonic valvular regurgitation.
== END 2017-12-07 15:46 | disposition home or self-care (01) | DRG 69 ==
LOC: C.ER 13:50 → OBSVTOIN 16:33 → C.9E 16:33 → C.9I 19:24 → C.6T 12-07 11:45
PROVIDERS: ADMIT Internal Medicine; ATTEND Internal Medicine
DX: G45.9 Transient cerebral ischemic attack, unspecified (principal); G81.94 Hemiplegia, unspecified affecting left nondominant side; G51.8 Other disorders of facial nerve; I10 Essential (primary) hypertension; F41.9 Anxiety disorder, unspecified; J45.909 Unspecified asthma, uncomplicated; E11.42 Type 2 diabetes mellitus with diabetic polyneuropathy; E66.9 Obesity, unspecified; E78.00 Pure hypercholesterolemia, unspecified; I25.10 Atherosclerotic heart disease of native coronary artery without angina pectoris